=== PATIENT | female | born 1960 | race Caucasian/White ===

== ENCOUNTER 2020-04-08 08:30 | Emergency (ER) | payer OTHER, SELFPAY ==
[2020-04-08 08:31] VITALS: BP 113/68; PULSE 108; RESP 16; TEMP 36.8; O2SAT 96; BMI 25.0
--- NOTE | 2020-04-08 08:46 | XR_ITS ---
PROCEDURE: XR CHEST PORTABLE CLINICAL HISTORY: cough COMPARISON: No exams were available for comparison FINDINGS: The cardiomediastinal silhouette and pulmonary vascularity are within normal limits. The lungs are clear without infiltrates, suspicious nodules, or pleural effusions. No acute bony abnormalities. IMPRESSION: No acute findings. Dictated by: Osmani Umanzor MD 04/08/2020 09:26 Osmani Umanzor MD in [place] 04/08/2020 09:26
--- NOTE | 2020-04-08 08:53 | HMH.EDGENADL ---
ED Disposition Clinical Impression: Cellulitis of upper arm and forearm Disposition: Home, Self-Care Condition on Discharge: Good Instructions: DI for Skin Abscess Prescriptions: Hydrocortisone [Hydrocortisone 1% Cream 30gm Tube] 1 applicatio TP BID #1 tube Transmission Status: Pending to [facility] Referrals: Chalo Floyd MD [Primary Care Provider] - - Critical Care Critical Care Time: No Attestation: On 04/08/20, the high probability of a clinically significant, sudden or life threatening deterioration of the following system(s) required my full and direct attention, intervention and personal management. The time I documented below is in addition to time spent performing reported procedures but includes the following listed in this critical care notation. Medical Decision Making - Medical Records Medical records reviewed: Yes: I reviewed the patient's medical records. - Kobe Inquiry Pt receiving controlled substance: No Vital Signs: 04/08/20 08:31 04/08/20 09:01 04/08/20 09:31 Temperature 98.3 F Temperature Source Oral Pulse Rate [Left Radial] 108 H 96 H 77 Respiratory Rate 16 18 16 Blood Pressure [Right Arm] 113/68 112/75 121/61 Blood Pressure Mean [Right Arm] 83 87 81 Blood Pressure Source [Right Arm] Automatic Cuff Blood Pressure Position [Right Arm] Sitting 02 Sat by Pulse Oximetry 96 95 96 Oxygen Delivery Method Room Air 04/08/20 10:01 04/08/20 10:31 Temperature Temperature Source Pulse Rate [Left Radial] 77 74 Respiratory Rate 18 20 Blood Pressure [Right Arm] 97/70 L 137/56 L Blood Pressure Mean [Right Arm] 79 83 Blood Pressure Source [Right Arm] Blood Pressure Position [Right Arm] 02 Sat by Pulse Oximetry 98 100 Oxygen Delivery Method - Lab Data Lab Results 04/08/20 09:22: WBC 8.4, RBC 4.29, Hgb 12.6, Hct 37.4, MCV 87.2, MCH 29.3, MCHC 33.6, RDW 13.2, Plt Count 192, MPV 7.8, Neut % (Auto) 78.2, Lymph % (Auto) 14.7, [place] % (Auto) 6.8, Eos % (Auto) 0.1, Baso % (Auto) 0.2, Neut # (Auto) 6.6, Lymph # (Auto) 1.2, [place] # (Auto) 0.6, Eos # (Auto) 0.0, Baso # (Auto) 0.0 04/08/20 09:22: Sodium 141, Potassium 3.6, Chloride 104, Carbon Dioxide 33 H, Anion Gap 7.6, BUN 13, Creatinine 0.70, Estimated Creat Clear 92, Estimated GFR 85, Est GFR ( Amer) 103, Glucose 96, Calcium 9.5, Total Bilirubin 0.9, AST 165 H, ALT 65, Alkaline Phosphatase 80, Total Protein 6.8, Albumin 3.9, Globulin 2.9, Albumin/Globulin Ratio 1.3 04/08/20 10:30: Urine Color Yellow, Urine Appearance Clear, Urine pH 5.5, Ur Specific [place] >= 1.030, Urine Protein Trace, Urine Glucose (UA) Negative, Urine Ketones 1+, Urine Blood Negative, Urine Nitrate Negative, Urine Bilirubin 2+ A, Urine Urobilinogen 1.0, Ur Leukocyte Esterase 1+ A Result diagrams: 04/08/20 09:22 04/08/20 09:22 Orders (Tests/Meds): ED MEDICATIONS Discontinued Medications Generic Name Dose Route Start Last Admin Trade Name Freq PRN Reason Stop Dose Admin Sodium Chloride 1,000 mls @ 999 mls/hr 04/08/20 09:00 Sod Chlor 0.9% 1000ml Bag IV 04/08/20 10:00 .Q1H1M [facility] ORDERS Category Date Time Status Urinalysis and Microscopic Stat Lab 04/08/20 10:30 Results Urine Culture Stat Micro 04/08/20 10:30 Received - Reevaluation(s) Time: 11:07 Reevaluation #1: On reevaluation, patient is feeling better. She is currently on antibiotic therapy for her arms. She did have some leukocyte esterase, however negative differential. Patient is also already on antibiotics. Patient be given topical cream he needs follow-up with PCP. Given strict return precautions. Verbalized understanding. Medical Decision Narrative: 59-year-old female presented to the emergency department with bilateral rash and generalized weakness. Patient currently being treated for cellulitis as an outpatient. There is no obvious signs of infection. Patient be evaluated symptomatically. General Adult HPI - General Chief com
[2020-04-08 09:01] VITALS: BP 112/75; PULSE 96; RESP 18; O2SAT 95
[2020-04-08 09:31] VITALS: BP 121/61; PULSE 77; RESP 16; O2SAT 96
[2020-04-08 09:43] LABS: Basophils % 0.2 % (0.1-2.0); Eosinophils % 0.1 % (0.1-12.0); Hematocrit 37.4 % (37.0-47.0); Hemoglobin 12.6 g/dL (12.2-16.2); Lymphocytes # 1.2 K/mm3 (0.7-4.5); Lymphocytes % 14.7 % (10-50); Mean Corpuscular HGB Conc 33.6 g/dL (31.8-35.4); Mean Corpuscular Hemoglobin 29.3 pg (27.0-31.2); Mean Corpuscular Volume 87.2 fl (81-99); Mean Platelet Volume 7.8 fl (7.4-10.4); Monocytes # 0.6 K/mm3 (0.1-1.0); Monocytes % 6.8 % (1.7-9.3); Neutrophils # 6.6 K/mm3 (1.8-7.8); Neutrophils % 78.2 % (37.0-80.0); Platelet Count 192 K/mm3 (142-424); Red Blood Count 4.29 M/mm3 (4.20-5.40); Red Cell Distribution Width 13.2 % (11.5-17.5); White Blood Count 8.4 K/mm3 (4.8-10.8)
[2020-04-08 09:48] LABS: Chloride 104 mmol/L (98-107); Potassium 3.6 mmoL/L (3.5-5.1); Sodium 141 mmol/L (136-145)
[2020-04-08 09:50] LABS: Blood Urea Nitrogen 13 mg/dl (7-17); Creatinine Clearance Estimated 92 mL/min (50-200); Estimated Glomerular Filt Rate 85 ml/min (>60); GFR (African American) 103 ML/MIN (>60)
[2020-04-08 09:51] LABS: Alanine Aminotransferase 65 U/L (12-78); Albumin Level 3.9 g/dl (3.5-5.0); Albumin/Globulin Ratio 1.3 (1.1-1.8); Alkaline Phosphatase 80 U/L (38-126); Anion Gap 7.6 mEq/L (5-15); Aspartate Amino Transferase 165 U/L (14-36); Bilirubin,Total 0.9 mg/dl (0.2-1.3); Calcium 9.5 mg/dl (8.4-10.2); Carbon Dioxide 33 mmol/L (22.0-30.0); Globulin 2.9 g/dL (1.3-3.2); Glucose 96 mg/dl (74-100); Total Protein,Serum 6.8 g/dl (6.3-8.2)
[2020-04-08 10:01] VITALS: BP 97/70; PULSE 77; RESP 18; O2SAT 98
[2020-04-08 10:31] VITALS: BP 137/56; PULSE 74; RESP 20; O2SAT 100
[2020-04-08 10:48] LABS: Microscopic, Urine URINE MICROSCOPIC (MICROSCOPIC)
[2020-04-08 10:49] LABS: Appearance,Urine CLEAR (Clear); Blood, Urine Negative (Negative); Color,Urine YELLOW (Yellow); Glucose,Urine (UA) Negative (Negative); Ketones,Urine 1+ (Negative); Leukocyte Esterase,Urine 1+ (Negative); Nitrate,Urine Negative (Negative); PH,Urine 5.5 (5.0-8.5); Protein,Urine TRACE (Negative); Specific Gravity, Urine >= 1.030 (1.005-1.030)
[2020-04-08 10:51] LABS: Bilirubin,Urine 2+ (Negative)
[2020-04-08 11:08] LABS: Bacteria,Urine 1+ /lpf
[2020-04-08 11:28] VITALS: BP 130/69; PULSE 77; RESP 18; TEMP 36.8; O2SAT 98
== END 2020-04-08 11:32 | disposition home or self-care (01) ==
PROVIDERS: Emergency Provider Emergency Medicine; PCP Emergency Medicine
DX: L03.113 Cellulitis of right upper limb (principal)
CPT/HCPCS: 71045; 80053; 81001; 85025; 87086; 96365; 99284

== ENCOUNTER 2021-01-15 20:53 | Emergency (ER) | payer OTHER, SELFPAY ==
[2021-01-15 20:49] VITALS: BP 100/56; PULSE 64; RESP 16; TEMP 36.7; O2SAT 97; BMI 27.4
--- NOTE | 2021-01-15 21:20 | PC.NURSE ---
Pt placed in room 5 on arrival and assisted by Camille into a gown. Pt belongings placed in a belongings bag and stored at nurses station.
[2021-01-15 21:39] LABS: Microscopic, Urine URINE MICROSCOPIC (MICROSCOPIC)
[2021-01-15 21:40] LABS: Basophils % 0.7 % (0.1-2.0); Eosinophils # 0.1 K/mm3 (0.0-0.4); Eosinophils % 1.7 % (0.1-12.0); Hematocrit 34.9 % (37.0-47.0); Hemoglobin 12.3 g/dL (12.2-16.2); Lymphocytes # 1.7 K/mm3 (0.7-4.5); Lymphocytes % 32.2 % (10-50); Mean Corpuscular HGB Conc 35.2 g/dL (31.8-35.4); Mean Corpuscular Hemoglobin 30.9 pg (27.0-31.2); Mean Corpuscular Volume 87.9 fl (81-99); Mean Platelet Volume 8.4 fl (7.4-10.4); Monocytes # 0.4 K/mm3 (0.1-1.0); Monocytes % 6.7 % (1.7-9.3); Neutrophils % 58.7 % (37.0-80.0); Platelet Count 216 K/mm3 (142-424); Red Blood Count 3.97 M/mm3 (4.20-5.40); Red Cell Distribution Width 12.6 % (11.5-17.5); White Blood Count 5.2 K/mm3 (4.8-10.8)
[2021-01-15 21:41] LABS: Appearance,Urine CLEAR (Clear); Bilirubin,Urine Negative (Negative); Blood, Urine Negative (Negative); Color,Urine YELLOW (Yellow); Glucose,Urine (UA) Negative (Negative); Ketones,Urine Negative (Negative); Leukocyte Esterase,Urine TRACE (Negative); Nitrate,Urine Negative (Negative); Protein,Urine Negative (Negative); Specific Gravity, Urine >= 1.030 (1.005-1.030); Urobilinogen,Urine 0.2 EU/dl (0.2)
--- NOTE | 2021-01-15 21:42 | PC.NURSE ---
This RN called [facility] to clarify events. Staff says pt came to counter for 8pm medications and they noticed she had redness around her neck. When staff investigated they found pt had shoestrings that had been tied together.
--- NOTE | 2021-01-15 21:43 | HMH.EDPSYCH ---
ED Disposition Clinical Impression: Depression Qualifiers: Depression Type: unspecified Qualified Code(s): F32.A - Depression, unspecified Disposition: Home, Self-Care Condition on Discharge: Good Instructions: Depression Additional Instructions: will be eval as op at this time Referrals: Chalo Floyd MD [Primary Care Provider] - - Critical Care Critical Care Time: No Attestation: On 01/15/21, the high probability of a clinically significant, sudden or life threatening deterioration of the following system(s) required my full and direct attention, intervention and personal management. The time I documented below is in addition to time spent performing reported procedures but includes the following listed in this critical care notation. Medical Decision Making - Medical Records Medical records reviewed: Yes: I reviewed the patient's medical records. - Kobe Inquiry Pt receiving controlled substance: No Vital Signs: 01/15/21 20:49 Temperature 98.1 F Temperature Source Oral Pulse Rate [Right Radial] 64 Respiratory Rate 16 Blood Pressure [Right Arm] 100/56 L Blood Pressure Mean [Right Arm] 70 Blood Pressure Source [Right Arm] Automatic Cuff Blood Pressure Position [Right Arm] Sitting 02 Sat by Pulse Oximetry 97 Oxygen Delivery Method Room Air - Lab Data Lab results reviewed: Yes: I reviewed the patient's lab results. Lab Results 01/15/21 21:29: WBC 5.2, RBC 3.97 L, Hgb 12.3, Hct 34.9 L, MCV 87.9, MCH 30.9, MCHC 35.2, RDW 12.6, Plt Count 216, MPV 8.4, Neut % (Auto) 58.7, Lymph % (Auto) 32.2, [place] % (Auto) 6.7, Eos % (Auto) 1.7, Baso % (Auto) 0.7, Neut # (Auto) 3.0, Lymph # (Auto) 1.7, [place] # (Auto) 0.4, Eos # (Auto) 0.1, Baso # (Auto) 0.0 01/15/21 21:29: Sodium 139, Potassium 3.4 L, Chloride 107, Carbon Dioxide 27, Anion Gap 8.4, BUN 14, Creatinine 0.70, Estimated Creat Clear 70, Estimated GFR 85, Est GFR ( Amer) 103, Glucose 90, Calcium 8.7, Total Bilirubin 0.5, AST 20, ALT < 4 L, Alkaline Phosphatase 49, Total Protein 6.2 L, Albumin 3.8, Globulin 2.4, Albumin/Globulin Ratio 1.6, Salicylates < 1.0 L, Acetaminophen < 10 L 01/15/21 21:29: Plasma/Serum Alcohol < 10 01/15/21 21:34: Urine Color Yellow, Urine Appearance Clear, Urine pH 6.0, Ur Specific [place] >= 1.030, Urine Protein Negative, Urine Glucose (UA) Negative, Urine Ketones Negative, Urine Blood Negative, Urine Nitrate Negative, Urine Bilirubin Negative, Urine Urobilinogen 0.2, Ur Leukocyte Esterase Trace, Urine WBC 5-10, Ur Squamous Epith Cells Occasional, Urine Bacteria 1+, Urine Mucus 3+ 01/15/21 21:34: Urine Opiates Screen Negative, Urine Methadone Screen Negative, Ur Barbituates Screen Negative, Ur Phencyclidine Scrn Negative, Ur Amphetamines Screen Negative, U Benzodiazepines Scrn Negative, Urine Cocaine Screen Negative, U Marijuana (THC) Screen Negative Result diagrams: 01/15/21 21:29 01/15/21 21:29 Orders (Tests/Meds): ORDERS Category Date Time Status T4 (Thyroxine) Stat Lab 01/16/21 00:26 Ordered Thyroid Stimulating Hormone Stat Lab 01/16/21 00:26 Ordered Medical Decision Narrative: not self- harm now and will need op eval for depression and meds Psych HPI - General Chief Complaint: Psychiatric Symptoms Stated Complaint: Psych Time Seen by Provider: 01/15/21 21:00 Mode of Arrival: EMS Source of Information: Patient, EMS, Medical Record Limitations: No Limitations Description of Symptoms (Recalled from ER Triage Doc. by RN): Pt was sent from [facility] after staff found she had an electrical cord wrapped around her neck. Pt has visible redness around her neck on arrival. Pt states she tried to strangle myself. When asked why she replied because I lost my mind . Pt denies wanting to currently harm herself or others. She says nothing triggered the incident and it was a spur of the moment thing. - History of Present Illness HPI Narrative: sent from [facility] for eval of possible depression as she thr
[2021-01-15 21:45] LABS: Albumin Level 3.8 g/dl (3.5-5.0); Albumin/Globulin Ratio 1.6 (1.1-1.8); Alkaline Phosphatase 49 U/L (38-126); Anion Gap 8.4 mEq/L (5-15); Aspartate Amino Transferase 20 U/L (14-36); Bilirubin,Total 0.5 mg/dl (0.2-1.3); Blood Urea Nitrogen 14 mg/dl (7-17); Calcium 8.7 mg/dl (8.4-10.2); Carbon Dioxide 27 mmol/L (22.0-30.0); Chloride 107 mmol/L (98-107); Creatinine Clearance Estimated 70 mL/min (50-200); Estimated Glomerular Filt Rate 85 ml/min (>60); GFR (African American) 103 ML/MIN (>60); Globulin 2.4 g/dL (1.3-3.2); Glucose 90 mg/dl (74-100); Potassium 3.4 mmoL/L (3.5-5.1); Sodium 139 mmol/L (136-145); Total Protein,Serum 6.2 g/dl (6.3-8.2)
[2021-01-15 21:48] LABS: Bacteria,Urine 1+ /lpf; Mucus,Urine 3+ /lpf; Squamous Epithelial Cell,Urine Occasional #/hpf (0-5)
[2021-01-15 21:49] LABS: Acetaminophen < 10 ug/ml (10-30); Alanine Aminotransferase < 4 U/L (12-78); Ethyl Alcohol < 10 mg/dl (0-10); Salicylate < 1.0 mg/dL (2.0-20.0)
[2021-01-15 21:53] LABS: Barbiturates Screen,Urine Negative ng/ml (<200); Benzodiazepines Screen,Urine Negative ng/ml (<200)
[2021-01-15 21:54] LABS: Amphetamine/Metha Screen,Urine Negative ng/ml (<1000)
[2021-01-15 21:55] LABS: Cannabinoid Screen,Urine Negative ng/ml (<50); Cocaine Screen,Urine Negative ng/ml (<300)
[2021-01-15 21:56] LABS: Methadone Screen,Urine Negative ng/ml (<300)
[2021-01-15 21:57] LABS: Opiate Screen,Urine Negative ng/ml (<300); Phencyclidine Screen,Urine Negative ng/ml (<25)
[2021-01-15 23:00] VITALS: BP 90/50; PULSE 51; RESP 16; O2SAT 98
[2021-01-16 00:37] VITALS: BP 96/50; PULSE 55; RESP 16; TEMP 36.6; O2SAT 97
[2021-01-16 00:55] LABS: T4 (Thyroxine) 9.8 ug/dl (5.53-11.0)
[2021-01-16 01:09] LABS: Thyroid Stimulating Hormone 2.15 uIU/mL (0.465-4.68)
== END 2021-01-16 00:47 | disposition home or self-care (01) ==
PROVIDERS: Emergency Provider Emergency Medicine; PCP Emergency Medicine
DX: F32.A Depression, unspecified (principal)
CPT/HCPCS: 80053; 80305; 80329; 81001; 84436; 84443; 85025; 99282

== ENCOUNTER 2021-04-06 20:39 | Emergency (ER) | payer OTHER, SELFPAY ==
[2021-04-06 20:34] VITALS: BP 119/65; PULSE 73; RESP 18; TEMP 36.7; O2SAT 97
--- NOTE | 2021-04-06 20:42 | XR_ITS ---
PROCEDURE INFORMATION: Exam: XR Chest Exam date and time: 04/06/2021 8:42 PM Age: 60 years old Clinical indication: Other: Syncope TECHNIQUE: Imaging protocol: XR of the chest. Views: 2 views. COMPARISON: CR XR CHEST PORTABLE 04/08/2020 9:07 AM FINDINGS: Lungs: Unremarkable. No consolidation. Pleural spaces: Unremarkable. No pleural effusion. No pneumothorax. Heart/Mediastinum: Unremarkable. No cardiomegaly. Bones/joints: Unremarkable. Organs: Status post cholecystectomy. IMPRESSION: No acute findings.
--- NOTE | 2021-04-06 20:46 | ECG_ITS ---
APPROVED REPORT Exam: Resting ECG HR:87 bpm ECG Measurements Heart Rate 87 AXES NH 145 P 66 QRSd 76 QRS 11 QT 368 T 56 QTc 412 Conclusion SINUS RHYTHM Left atrial abnormality RIGHT VENTRICULAR CONDUCTION DELAY [RSR (QR) IN V1/V2] BORDERLINE ECG UNCONFIRMED REPORT Electronically signed by : Dominguez Beverly MD 04/07/2021 17:59:36
[2021-04-06 20:50] LABS: Basophils # 0.1 K/mm3 (0-0.2); Basophils % 0.8 % (0.1-2.0); Eosinophils # 0.1 K/mm3 (0.0-0.4); Eosinophils % 1.2 % (0.1-12.0); Hematocrit 40.5 % (37.0-47.0); Hemoglobin 13.9 g/dL (12.2-16.2); Lymphocytes # 2.9 K/mm3 (0.7-4.5); Lymphocytes % 41.8 % (10-50); Mean Corpuscular HGB Conc 34.3 g/dL (31.8-35.4); Mean Corpuscular Hemoglobin 30.2 pg (27.0-31.2); Mean Platelet Volume 7.2 fl (7.4-10.4); Monocytes # 0.4 K/mm3 (0.1-1.0); Monocytes % 5.6 % (1.7-9.3); Neutrophils # 3.5 K/mm3 (1.8-7.8); Neutrophils % 50.5 % (37.0-80.0); Platelet Count 279 K/mm3 (142-424); Red Cell Distribution Width 12.4 % (11.5-17.5); White Blood Count 6.8 K/mm3 (4.8-10.8)
[2021-04-06 20:57] LABS: Alanine Aminotransferase 19 U/L (12-78); Albumin Level 4.2 g/dl (3.5-5.0); Albumin/Globulin Ratio 1.5 (1.1-1.8); Alkaline Phosphatase 84 U/L (38-126); Anion Gap 14.3 mEq/L (5-15); Aspartate Amino Transferase 24 U/L (14-36); Bilirubin,Total 1.3 mg/dl (0.2-1.3); Blood Urea Nitrogen 10 mg/dl (7-17); Calcium 8.7 mg/dl (8.4-10.2); Carbon Dioxide 24 mmol/L (22.0-30.0); Chloride 106 mmol/L (98-107); Creatinine Clearance Estimated 51 mL/min (50-200); Estimated Glomerular Filt Rate 85 ml/min (>60); GFR (African American) 103 ML/MIN (>60); Globulin 2.8 g/dL (1.3-3.2); Glucose 110 mg/dl (74-100); Potassium 3.3 mmoL/L (3.5-5.1); Sodium 141 mmol/L (136-145)
[2021-04-06 21:02] LABS: C-Reactive Protein 0.6 mg/L (0-4)
[2021-04-06 21:10] LABS: Microscopic, Urine URINE MICROSCOPIC (MICROSCOPIC)
[2021-04-06 21:11] VITALS: BP 113/62; BP 113/71; BP 130/67
[2021-04-06 21:13] LABS: Erythrocyte Sedimentation Rate 15 mm/hr (0-30)
[2021-04-06 21:18] LABS: Procalcitonin < 0.030 ng/mL (0.0-2.0); Troponin I < 0.01 ng/ml (0.00-0.034)
--- NOTE | 2021-04-06 21:23 | HMH.EDSYNC ---
ED Disposition Clinical Impression: Vasovagal syncope Disposition: Home, Self-Care Condition on Discharge: Good Instructions: DI for Syncope in Adults (Fainting) Additional Instructions: fluids and see pcp for follow up Referrals: Chalo Floyd MD [Primary Care Provider] - - Critical Care Critical Care Time: No Attestation: On 04/06/21, the high probability of a clinically significant, sudden or life threatening deterioration of the following system(s) required my full and direct attention, intervention and personal management. The time I documented below is in addition to time spent performing reported procedures but includes the following listed in this critical care notation. Medical Decision Making - Medical Records Medical records reviewed: Yes: I reviewed the patient's medical records. - Kobe Inquiry Pt receiving controlled substance: No Vital Signs: 04/06/21 20:34 04/06/21 21:11 Temperature 98.0 F Temperature Source Oral Pulse Rate [Right] 73 Respiratory Rate 18 Blood Pressure [Orthostatic Lying] 113/71 Blood Pressure [Orthostatic Sitting] 113/62 Blood Pressure [Orthostatic Standing] 130/67 Blood Pressure [Right Arm] 119/65 Blood Pressure Mean [Right Arm] 83 02 Sat by Pulse Oximetry 97 - Lab Data Lab results reviewed: Yes: I reviewed the patient's lab results. Lab Results 04/06/21 20:42: WBC 6.8, RBC 4.60, Hgb 13.9, Hct 40.5, MCV 88.0, MCH 30.2, MCHC 34.3, RDW 12.4, Plt Count 279, MPV 7.2 L, Neut % (Auto) 50.5, Lymph % (Auto) 41.8, [place] % (Auto) 5.6, Eos % (Auto) 1.2, Baso % (Auto) 0.8, Neut # (Auto) 3.5, Lymph # (Auto) 2.9, [place] # (Auto) 0.4, Eos # (Auto) 0.1, Baso # (Auto) 0.1, ESR 15 04/06/21 20:42: Sodium 141, Potassium 3.3 L, Chloride 106, Carbon Dioxide 24, Anion Gap 14.3, BUN 10, Creatinine 0.70, Estimated Creat Clear 51, Estimated GFR 85, Est GFR ( Amer) 103, Glucose 110 H, Calcium 8.7, Total Bilirubin 1.3, AST 24, ALT 19, Alkaline Phosphatase 84, Troponin I < 0.01, C-Reactive Protein 0.6, Total Protein 7.0, Albumin 4.2, Globulin 2.8, Albumin/Globulin Ratio 1.5, Procalcitonin < 0.030 04/06/21 21:00: Urine Color Brown, Urine Appearance Clear, Urine pH 6.0, Ur Specific [place] >= 1.030, Urine Protein Negative, Urine Glucose (UA) Negative, Urine Ketones Trace, Urine Blood Negative, Urine Nitrate Negative, Urine Bilirubin 2+ A, Urine Urobilinogen 1.0, Ur Leukocyte Esterase Trace, Urine RBC None, Urine WBC 3-5, Ur Squamous Epith Cells 3-5, Urine Bacteria Trace, Urine Mucus 2+ 04/06/21 23:06: Troponin I < 0.01 Result diagrams: 04/06/21 20:42 04/06/21 20:42 Orders (Tests/Meds): ED MEDICATIONS Discontinued Medications Generic Name Dose Route Start Last Admin Trade Name Freq PRN Reason Stop Dose Admin Sodium Chloride 1,000 mls @ 999 mls/hr 04/06/21 21:00 04/06/21 21:03 Sod Chlor 0.9% 1000ml Bag IV 04/06/21 22:00 999 mls/hr .Q1H1M [facility] Administration ORDERS Category Date Time Status Troponin I Q3H Lab 04/07/21 02:45 Ordered - Radiology Data #1 Image(s): Chest Image Reviewed: Yes I have reviewed radiologist's interpretation Preliminary Findings: Normal/NAD - ECG Data Tracing #1 Normal Sinus Rhythm: Yes Ischemic changes: non-specific ST-T wave changes - ADARSH Score for Non-Stemi Age of Patient: 60-69 years old Heart Rate: 70-89 bpm Systolic Blood Pressure: 100-119 mmHg Serum Creatinine: 0.40-0.79 mg/dl CHF [place] Class: I-No CHF Other Risk Factors: None Non-Stemi Risk Score: 114 Medical Decision Narrative: had possible vasovagal - will use holter and do echo and review meds Syncope HPI - General Chief Complaint: Syncope Stated Complaint: syncope Time Seen by Provider: 04/06/21 20:50 Mode of Arrival: EMS Source of Information: Patient, EMS, Medical Record Limitations: No Limitations Description of Symptoms (Recalled from ER Triage Doc. by RN): personal senior living reports pt was standing in front of med room and
[2021-04-06 21:26] LABS: Appearance,Urine CLEAR (Clear); Blood, Urine Negative (Negative); Color,Urine BROWN (Yellow); Glucose,Urine (UA) Negative (Negative); Ketones,Urine TRACE (Negative); Leukocyte Esterase,Urine TRACE (Negative); Nitrate,Urine Negative (Negative); Protein,Urine Negative (Negative); Specific Gravity, Urine >= 1.030 (1.005-1.030)
[2021-04-06 21:27] LABS: Bilirubin,Urine 2+ (Negative)
[2021-04-06 21:40] LABS: Bacteria,Urine Trace /lpf; Mucus,Urine 2+ /lpf
[2021-04-06 23:38] LABS: Troponin I < 0.01 ng/ml (0.00-0.034)
[2021-04-07 00:36] VITALS: BP 120/80; PULSE 70; RESP 18; TEMP 36.6; O2SAT 98
== END 2021-04-07 00:58 | disposition home or self-care (01) ==
PROVIDERS: Emergency Provider Emergency Medicine; PCP Emergency Medicine
DX: R55 Syncope and collapse (principal)
CPT/HCPCS: 71046; 80053; 81001; 84145; 84484; 85025; 85651; 86140; 93005; 96365; 99283; 99284

== ENCOUNTER 2022-03-26 08:11 | Emergency (ER) | payer OTHER, SELFPAY ==
[2022-03-26] VITALS (11 sets, daily range): BP systolic 109–149; BP diastolic 53–90; PULSE 65–90; RESP 16–17; TEMP 36.6; O2SAT 95–99; BMI 21.6
--- NOTE | 2022-03-26 08:42 | XR_ITS ---
FINAL REPORT CLINICAL HISTORY: syncope COMPARISON: 04/07/2021 FINDINGS: 2 views of the chest were obtained . The heart is normal in size. The mediastinum is within normal limits. The lungs are clear. There is no pneumothorax. Osseous structures are unremarkable. IMPRESSION: No acute cardiopulmonary process. Reviewed, Interpreted and Dictated by Demetri Ann MD Transcribed by Roberta De La Cruz Authenticated and [facility]
[2022-03-26 08:55] LABS: Basophils # 0.1 K/mm3 (0-0.2); Basophils % 1.4 % (0.1-2.0); Eosinophils # 0.1 K/mm3 (0.0-0.4); Eosinophils % 1.6 % (0.1-12.0); Hematocrit 41.4 % (37.0-47.0); Hemoglobin 13.7 g/dL (12.2-16.2); Lymphocytes # 1.1 K/mm3 (0.7-4.5); Lymphocytes % 20.4 % (10-50); Mean Corpuscular HGB Conc 33.1 g/dL (31.8-35.4); Mean Corpuscular Hemoglobin 29.9 pg (27.0-31.2); Mean Corpuscular Volume 90.3 fl (81-99); Mean Platelet Volume 7.6 fl (7.4-10.4); Monocytes # 0.3 K/mm3 (0.1-1.0); Monocytes % 6.7 % (1.7-9.3); Neutrophils # 3.6 K/mm3 (1.8-7.8); Neutrophils % 69.9 % (37.0-80.0); Platelet Count 263 K/mm3 (142-424); Red Blood Count 4.59 M/mm3 (4.20-5.40); Red Cell Distribution Width 12.8 % (11.5-17.5); White Blood Count 5.1 K/mm3 (4.8-10.8)
[2022-03-26 09:11] LABS: Alanine Aminotransferase 21 U/L (12-78); Albumin Level 4.1 g/dl (3.5-5.0); Albumin/Globulin Ratio 1.5 (1.1-1.8); Alkaline Phosphatase 94 U/L (38-126); Anion Gap 9.5 mEq/L (5-15); Aspartate Amino Transferase 31 U/L (14-36); Bilirubin,Total 1.5 mg/dl (0.2-1.3); Blood Urea Nitrogen 15 mg/dl (7-17); Calcium 8.8 mg/dl (8.4-10.2); Carbon Dioxide 28 mmol/L (22.0-30.0); Chloride 108 mmol/L (98-107); Creatinine Clearance Estimated 49 mL/min (50-200); Estimated Glomerular Filt Rate 50 ml/min (>60); GFR (African American) 61 ML/MIN (>60); Globulin 2.7 g/dL (1.3-3.2); Glucose 101 mg/dl (74-100); Potassium 3.5 mmoL/L (3.5-5.1); Sodium 142 mmol/L (136-145); Total Protein,Serum 6.8 g/dl (6.3-8.2)
--- NOTE | 2022-03-26 09:17 | HMH.EDGENADL ---
Discharge Plan Disposition Patient Disposition: Home, Self-Care Condition: Good Prescriptions Prescriptions: No Action atorvastatin 20 MG tablet 20 mg PO HS aspirin 325 MG tablet 325 mg PO DAILY donepezil 10 MG tablet 10 mg PO HS levothyroxine 50 MCG tablet 50 mcg PO DAILY megestrol 20 MG tablet 20 mg PO DAILY sertraline 200 MG capsule 200 mg PO DAILY potassium chloride 10 MEQ capsule, extended release 10 meq PO BID risperidone 2 MG tablet 2 mg PO BID melatonin 10 MG tablet 10 mg PO HS Referrals Follow up/Referrals: Chalo Floyd MD [Staff Physician] - See instructions Activity Restrictions/Add. Instructions Additional Instructions/Restrictions: Rest and drink plenty of fluids. Rise slowly from lying or sitting position to standing position and hold onto an object for a few minutes before you begin walking. Clinical Impressions Clinical Impression: Syncope and collapse, Acute dehydration Instructions Patient Instructions: DI for Syncope in Adults (Fainting), DI for Dehydration -- Adult Discharge ED Provider: Robert Mccord Adult HPI General Chief complaint: Syncope Stated complaint: syncopal Time Seen by Provider: 03/26/22 09:12 Mode of Arrival: EMS Source of Information: Patient and EMS Limitations: No Limitations Description of Symptoms (Recalled from ER Triage Doc. by RN): pt to ed via ems c/o syncope. pt states she was standing in the breakfast line and passed out. pt states she does not hit her head and has no complaints of pain. History of Present Illness HPI narrative: Patient is brought in by ambulance. She is from [facility]. She was reportedly standing in the breakfast fine and had a syncopal episode. No reported seizure activity, incontinence, or tongue biting. The patient says she currently feels fine. She has no pain including headache, neck pain, chest pain, abdominal pain, back pain, or injuries to the extremities. She says she has not recently been ill. She says the episode was not accompanied by chest pain or shortness of breath and does not have shortness of breath now. Related Data Home Medications Medication Instructions Recorded Confirmed aspirin 325 mg tablet 325 mg PO DAILY Heart Health 01/15/21 01/15/21 atorvastatin 20 mg tablet 20 mg PO HS High cholesterol 01/15/21 01/15/21 donepezil 10 mg tablet 10 mg PO HS Physch 01/15/21 01/15/21 levothyroxine 50 mcg tablet 50 mcg PO DAILY THyroid 01/15/21 01/15/21 megestrol 20 mg tablet 20 mg PO DAILY Appetite 01/15/21 01/15/21 melatonin 10 mg tablet 10 mg PO HS Sleep 01/15/21 01/15/21 potassium chloride 10 mEq 10 meq PO BID Supplement 01/15/21 01/15/21 capsule,extended release risperidone 2 mg tablet 2 mg PO BID Psych 01/15/21 01/15/21 sertraline 200 mg capsule 200 mg PO DAILY Physch 01/15/21 01/15/21 Allergies Allergy/AdvReac Type Severity Reaction Status Date / Time No Known Allergies Allergy Verified 04/08/20 09:16 [facility] Disclaimer: The information contained in this section may have been updated after the patient was seen, as this information can be updated by other users. Social History Smoking Status: Current every day smoker ROS Obtained: Yes Systems reviewed as appropriate & no additional complaints except as documented Constitutional Constitutional: Denies fever(s), Denies headache(s) and Denies weakness ENT Ears, Nose, Mouth, and Throat: Denies headache(s), Denies nasal discharge and Denies sore throat Cardiovascular Cardiovascular: Denies chest pain and Reports syncope Respiratory Respiratory: Denies shortness of breath and Denies cough Gastrointestinal Gastrointestingal: Denies abdominal pain, constipation, diarrhea or vomiting Genitourinary Female Genitourinary: Denies difficulty voiding, Denies dysuria and Denies flank pain Musculoskeletal Musculoskeletal: Denies numbness Neurologic Neurologic: Denies headache(s
--- NOTE | 2022-03-26 09:19 | CA_ITS ---
APPROVED REPORT EXAM: Comprehensive 2D, Doppler, and color-flow Echocardiogram Travel Director: RODRIGUE Sigala, RVS Ht: 5 ft 3 in Wt: 130lbs BSA: 1.61 BP: 113/54 mmHg Indications: SYNCOPE, SMOKER, HLD Echo Enhancing Agent Comments: PATIENT IN CONSTANT MOTION LIMITED ACOUSTIC WINDOW 2D Dimensions Aortic Root 2.45 cm F: 2.7 - 3.3 LA Volume 25.20 mL Left Atrium 3.22 cm F: 2.7 - 3.8 LA Volume Index [id number] mL/m2 (M/F) 16-34 LVOT 1.94 cm (M/F) 1.5-2.5 M-Mode Dimensions RVDd 2.47 cm (0.9-2.6) LA Diam 3.52 cm (1.9-4.0) LVDd 4.85 cm (3.5-5.7) Ao Diam 2.89 cm (2.0-3.7) LVDs 3.00 cm (3.5-5.7) IVSd 0.78 cm (0.6-1.1) PWd 0.91 cm (0.6-1.1) EF (Teich) 68.20% EPSs 0.44 cm FS 38.10% EDV (Teich) 110.20 mL TAPSE 2.69 (<1.7) ESV (Teich) 35.00 mL LV Diastology E Decel Time 310.00 (160-240 msec) E/A Ratio 0.83 MED E' 6.50 (< 7 cm/sec) MED A' 11.60 cm/s E'/MED E' Ratio 8.23 (>14) LAT E' 10.60 (<10 cm/sec) LAT A' 12.40 cm/s E/LAT E' Ratio 5.05 (>14) Aortic Valve LVOT Max 79.00 (70-110 cm/s) LVOT VTI 17.26 cm AoV Peak René. 151.00 (50-130 cm/s) AI PHT 743.00 ms AO Peak GR. 9.20 mmHg AO Mean GR. 4.70 (<5 mmHg) AO VTI 30.61 (18-25 cm) JONNATHAN (VTI) 1.67 (2.5-4.5 cm2) Mitral Valve MV A Velocity 65.00 (40-130 cm/s) E/A Ratio 0.83 MV Decel. Time 310.00 (160-240 ms) Pulmonary Valve PV Peak Velocity 93.00 (50-150 cm/s) Left Ventricle Left atrium is mildly enlarged, left ventricle is normal size, mild concentric left ventricular hypertrophy, estimated ejection fraction 55% with no regional wall motion abnormality, grade 1 diastolic dysfunction seen without tissue Doppler evidence of range left atrial pressure. Right Ventricle Right atrium and right ventricular normal size and contractility. Aortic Valve Aortic valve is minimally thickened and fibrosed, there is no aortic stenosis, there is trace aortic insufficiency. Mitral Valve Mitral valve is grossly normal, there is trace mitral regurgitation. Tricuspid Valve Tricuspid valve is grossly normal, there is trace tricuspid regurgitation, tricuspid regurgitation jet plasty is inadequate for calculation of the right ventricular systolic pressure. Pulmonic Valve Pulmonic valve is poorly visualized. Great Vessels Aortic root is normal size. Inferior vena cava is poorly visualized. Pericardium No significant pericardial effusion noted. Conclusion 1. Mildly enlarged left atrium, normal left ventricular size, estimate ejection fraction 55% with no regional wall motion abnormality, grade 1 diastolic dysfunction seen without tissue Doppler evidence of restricted to pressure. 2. Trace aortic, mitral and tricuspid regurgitation. 3. No significant pericardial effusion noted. 4. Inferior vena cava is poorly visualized. Electronically signed by : Freddy Hooker MD 03/27/2022 17:50:49
--- NOTE | 2022-03-26 09:25 | ECG_ITS ---
APPROVED REPORT Exam: Resting ECG HR:63 bpm ECG Measurements Heart Rate 63 AXES [place] 157 P 63 QRSd 102 QRS 42 QT 388 T 51 QTc 396 Conclusion SINUS RHYTHM INDETERMINATE AXIS NORMAL ECG UNCONFIRMED REPORT Electronically signed by : Dominguez Beverly MD 03/26/2022 17:29:35
[2022-03-26 09:36] LABS: Troponin I < 0.01 ng/ml (0.00-0.034)
[2022-03-26 10:33] LABS: Coronavirus 19, PCR Not Detected (NotDetected); Influenza A, PCR Not Detected (NotDetected); Influenza B, PCR Not Detected (NotDetected)
--- NOTE | 2022-03-26 10:35 | PC.NURSE ---
Rounded on patient and family member a this time. Updated on approx wait times. Pt and family member agreeable. Remoted provided for tv, no other needs. Ensured call-light within reach and both aware on how to use it.
--- NOTE | 2022-03-26 11:13 | PC.NURSE ---
Rounded on pt. Resting comfortably in the bed at this time. Vitals cycling. No questions or concerns at this time.
[2022-03-26 12:13] LABS: Troponin I < 0.01 ng/ml (0.00-0.034)
== END 2022-03-26 11:51 | disposition home or self-care (01) ==
PROVIDERS: Emergency Provider Emergency Medicine
DX: R55 Syncope and collapse (principal); E86.0 Dehydration; F17.210 Nicotine dependence, cigarettes, uncomplicated
CPT/HCPCS: 36415; 71046; 80053; 84484; 85025; 93005; 93306; 96360; 99285; C9803; U0003; U0005

== ENCOUNTER 2022-05-27 13:38 | Emergency (ER) | payer OTHER, SELFPAY ==
[2022-05-27 14:00] VITALS: BP 123/69; PULSE 69; RESP 18; O2SAT 96
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
[2022-05-27 14:09] VITALS: BP 116/82; PULSE 75; RESP 16; TEMP 36.8; O2SAT 95; BMI 28.3
[2022-05-27 14:30] VITALS: BP 119/66; PULSE 79; O2SAT 95
[2022-05-27 14:30] LABS: Microscopic, Urine URINE MICROSCOPIC (MICROSCOPIC)
[2022-05-27 14:34] LABS: Appearance,Urine CLEAR (Clear); Bilirubin,Urine Negative (Negative); Blood, Urine Negative (Negative); Color,Urine YELLOW (Yellow); Glucose,Urine (UA) Negative (Negative); Ketones,Urine Negative (Negative); Leukocyte Esterase,Urine TRACE (Negative); Nitrate,Urine Negative (Negative); Protein,Urine Negative (Negative); Specific Gravity, Urine 1.025 (1.005-1.030)
[2022-05-27 14:52] LABS: Basophils % 0.6 % (0.1-2.0); Eosinophils # 0.1 K/mm3 (0.0-0.4); Hematocrit 41.8 % (37.0-47.0); Hemoglobin 13.6 g/dL (12.2-16.2); Lymphocytes # 1.4 K/mm3 (0.7-4.5); Lymphocytes % 22.6 % (10-50); Mean Corpuscular HGB Conc 32.6 g/dL (31.8-35.4); Mean Corpuscular Hemoglobin 29.2 pg (27.0-31.2); Mean Corpuscular Volume 89.5 fl (81-99); Mean Platelet Volume 7.9 fl (7.4-10.4); Monocytes # 0.5 K/mm3 (0.1-1.0); Monocytes % 8.3 % (1.7-9.3); Neutrophils # 4.2 K/mm3 (1.8-7.8); Neutrophils % 67.5 % (37.0-80.0); Platelet Count 261 K/mm3 (142-424); Red Blood Count 4.68 M/mm3 (4.20-5.40); Red Cell Distribution Width 12.9 % (11.5-17.5); White Blood Count 6.2 K/mm3 (4.8-10.8)
[2022-05-27 14:53] LABS: Chloride 104 mmol/L (98-107); Potassium 3.5 mmoL/L (3.5-5.1); Sodium 141 mmol/L (136-145)
[2022-05-27 14:55] LABS: Blood Urea Nitrogen 11 mg/dl (7-17); Creatinine Clearance Estimated 71 mL/min (50-200); Estimated Glomerular Filt Rate 63 ml/min (>60); GFR (African American) 77 ML/MIN (>60)
[2022-05-27 14:56] LABS: Alanine Aminotransferase 25 U/L (12-78); Albumin Level 3.8 g/dl (3.5-5.0); Albumin/Globulin Ratio 1.4 (1.1-1.8); Alkaline Phosphatase 85 U/L (38-126); Anion Gap 10.5 mEq/L (5-15); Aspartate Amino Transferase 31 U/L (14-36); Bilirubin,Total 0.8 mg/dl (0.2-1.3); Calcium 8.2 mg/dl (8.4-10.2); Carbon Dioxide 30 mmol/L (22.0-30.0); Globulin 2.8 g/dL (1.3-3.2); Glucose 120 mg/dl (74-100); Total Protein,Serum 6.6 g/dl (6.3-8.2)
[2022-05-27 14:57] LABS: RBC,Urine Occasional #/hpf (0-3)
[2022-05-27 14:58] LABS: Bacteria,Urine 2+ /lpf
[2022-05-27 15:01] VITALS: BP 134/78; PULSE 71; O2SAT 98
[2022-05-27 15:49] VITALS: PULSE 75; O2SAT 96
--- NOTE | 2022-05-27 16:38 | PC.NURSE ---
called [facility] for transport back to facility
--- NOTE | 2022-05-27 17:22 | PC.NURSE ---
called for jun again they advised she was coming from [place] to pick her up.
--- NOTE | 2022-05-27 17:26 | PC.NURSE ---
pt given meal tray
[2022-05-27 17:57] VITALS: BP 119/66; PULSE 64; RESP 16; TEMP 36.6
== END 2022-05-27 17:58 | disposition home or self-care (01) ==
PROVIDERS: Emergency Provider Emergency Medicine; PCP Emergency Medicine
DX: K62.5 Hemorrhage of anus and rectum (principal)
CPT/HCPCS: 80053; 81001; 85025; 87086; 99284; 99285

== ENCOUNTER 2023-10-02 11:50 | Emergency (ER) | payer OTHER, SELFPAY ==
--- NOTE | 2023-10-02 11:47 | ED_ITS ---
Discharge Plan Disposition Patient Disposition: Xfer SNF Condition: Good Prescriptions Prescriptions: No Action Clenpiq 10 mg-3.5 gram- 12 gram/160 mL solution 160 ml PO DAILY Qty: 320 0RF Rx Instructions: take first dose at 5-9PM evening before colonoscopy; 2nd dose the next day approximately 5 hrs before colonoscopy hydrocortisone 1 % cream 1 applic topical BID PRN (Reason: skin irritation) Qty: 28.4 4RF atorvastatin 20 MG tablet 20 mg PO HS aspirin 325 MG tablet 325 mg PO DAILY donepezil 10 MG tablet 10 mg PO HS levothyroxine 50 MCG tablet 50 mcg PO DAILY megestrol 20 MG tablet 20 mg PO DAILY sertraline 200 MG capsule 200 mg PO DAILY potassium chloride 10 MEQ capsule, extended release 10 meq PO BID risperidone 2 MG tablet 2 mg PO BID melatonin 10 MG tablet 10 mg PO HS Referrals Follow up/Referrals: Provider,Referral, MD [Primary Care Provider] - See instructions Activity Restrictions/Add. Instructions Additional Instructions/Restrictions: You are stable for discharge from the emergency department at this time, given that you have no external evidence of injury, no pain, and family at bedside feel that you are at your baseline mental status. Please return with any new or worsening symptoms. Clinical Impressions Clinical Impression: Encounter for medical assessment Instructions Patient Instructions: DI for Altered Mental Status Print Language Print Language: Spanish Discharge ED Provider: Abdiel Benson Adult HPI General Chief complaint: Altered Mental Status Stated complaint: AMS Time Seen by Provider: 10/02/23 11:47 History of Present Illness HPI narrative: The patient presents with an unclear timeline of events and is unsure of what happened today. She denies any pain or discomfort in her abdomen, arms, shoulders, neck, and back. The patient does not recall falling or being found on the side of the road or in a ditch. She has no memory of how she got there. The patient's family reports that she has had problems for years, but they were only recently made aware of the situation today. They speculate that her mind may become foggy, leading her to wander, as [place] walk freely. The patient is reportedly healthy, with no known medical conditions other than emotional issues. Please note that above description of symptoms, in this electronic medical record under categorization of recalled from ER triage doctor by RN are reflective of an initial nursing assessment, however, is not reflective of my full history and physical exam that was personally taken and clarified. Consequentially, this preceding description of symptoms, which may include the patient's categorized chief complaint in the EMR, do not reflect my personal clinical impression, and the ultimate description of history of present illness and patient stated complaints should be deferred to this section of the note. Unless stated otherwise or congruent with this section of the note, additional signs, symptoms, or incongruence should be interpreted as inaccurate with my clinical impression. Related Data Home Medications ?Medication ?Instructions ?Recorded ?Confirmed aspirin 325 mg tablet 325 mg PO DAILY Heart Health 01/15/21 01/15/21 atorvastatin 20 mg tablet 20 mg PO HS High cholesterol 01/15/21 01/15/21 donepezil 10 mg tablet 10 mg PO HS Physch 01/15/21 01/15/21 levothyroxine 50 mcg tablet 50 mcg PO DAILY THyroid 01/15/21 01/15/21 megestrol 20 mg tablet 20 mg PO DAILY Appetite 01/15/21 01/15/21 melatonin 10 mg tablet 10 mg PO HS Sleep 01/15/21 01/15/21 potassium chloride 10 mEq 10 meq PO BID Supplement 01/15/21 01/15/21 capsule,extended release risperidone 2 mg tablet 2 mg PO BID Psych 01/15/21 01/15/21 sertraline 200 mg capsule 200 mg PO DAILY Physch 01/15/21 01/15/21 Previous Rx's ?Medication ?Instructions ?Recorded sod picosulf 10 mg-magnes 3.5 160 ml PO DAILY 2 doses #320 mL 06/08/22 gram-citric 12 gram/160 mL oral solution (Clenpiq) hydrocortisone 1 % topical cream 1 applic topical BID PRN skin 10/16/22 irritation #28.4 grams Allergies Allergy/AdvReac Type Severity Reaction Status Date / Time azithromycin [From Zithromax] Allergy Verified 10/02/23 11:53 doxycycline Allergy Verified 10/02/23 11:53 Penicillins Allergy Verified 10/02/23 11:53 [facility] Disclaimer: The information contained in this section may have been updated after the patient was seen, as this information can be updated by other users. Social History (Updated 05/27/22 @ 16:32 by Elian Han MD) Smoking Status: Never smoker alcohol intake: never current occupational status: unemployed Travel in the last 8 weeks: None ROS Obtained: Yes other As per HPI Physical Exam General General appearance: alert and in no apparent distress Head Head exam: atraumatic and normocephalic Eye Eye exam: Present normal appearance Neck Neck exam: Present normal inspection Chest Chest inspection: Present normal inspection and symmetric chest wall rise Respiratory Respiratory exam: Present normal lung sounds bilaterally; Absent respiratory distress Cardiovascular Cardiovascular exam: Present regular rate and normal rhythm Abdominal Exam Abdominal exam: Present soft Neurological Exam Neurological exam: Present alert Psychiatric Psychiatric exam: Present flat affect Skin Skin exam: Present warm and dry Other Other exam information: Flat affect, alert, interactive, at baseline per family members at bedside. No clinical evidence of trauma to head, neck, no tenderness to palpation of abdomen, bilateral lower or bilateral upper extremities. No neurologic deficits appreciable within confines of compliance with baseline mental status changes. Medical Decision Making Medical Records Medical records reviewed: Yes I reviewed the patient's medical records. [place] Inquiry Pt receiving controlled substance: No Vital Signs: 10/02/23 11:57 10/02/23 12:00 10/02/23 12:24 Temperature 98.3 F Temperature Source Oral Pulse Rate 93 H 97 H Pulse Rate [Left Radial] 75 Respiratory Rate 20 Blood Pressure 102/71 L 107/58 L Blood Pressure [Right Arm] 90/53 L Blood Pressure Mean [Right Arm] 65 02 Sat by Pulse Oximetry 95 95 91 L Oxygen Delivery Method Room Air 10/02/23 13:04 Temperature 98.3 F Temperature Source Oral Pulse Rate 91 H Pulse Rate [Left Radial] Respiratory Rate 20 Blood Pressure 110/61 Blood Pressure [Right Arm] Blood Pressure Mean [Right Arm] 02 Sat by Pulse Oximetry Oxygen Delivery Method Room Air Medical Decision Narrative: Patient with history and exam per above presenting for evaluation following being found on side of the road. To my understanding patient eloped from nursing facility. Patient is at baseline mental status per family members. She denies any pain anywhere at this time, fingerstick blood sugar within normal limits, no clinical evidence of trauma. She was able to tolerate p.o. intake, ambulate without difficulty in the ED. I discussed my physical examination findings and elicited any concerns from family members. They are comfortable with her being discharged at this time and no further workup. She will return to her nursing facility and return to the emergency department with any new or worsening symptoms. Critical Care Critical Care Time Critical Care Time: No
[2023-10-02 11:57] VITALS: BP 90/53; PULSE 75; RESP 20; TEMP 36.8; O2SAT 95; BMI 25.0
[2023-10-02 12:00] VITALS: BP 102/71; PULSE 93; O2SAT 95
[2023-10-02 12:24] VITALS: BP 107/58; PULSE 97; O2SAT 91
[2023-10-02 13:04] VITALS: BP 110/61; PULSE 91; RESP 20; TEMP 36.8; O2SAT 95
== END 2023-10-02 13:06 ==
PROVIDERS: Emergency Provider Emergency Medicine
DX: Z00.8 Encounter for other general examination (principal)
CPT/HCPCS: 99283